=== PATIENT | female | born 1960 | race Caucasian/White ===

== ENCOUNTER 2016-08-14 14:49 | Emergency (ER) | payer BC ==
[~2016-08-14] VITALS: Ht 172.7 cm; Wt 61.2 kg
--- NOTE | 2016-08-14 14:53 | NUR ---
GLF; MECHANICAL FALL; NO KO; C/O RIGHT SHOULDER 12/18. AWAITING MD ORDER.
--- NOTE | 2016-08-14 16:50 | NUR ---
Patient discharged to home in stable condition. Written and verbal after care instructions given. Patient verbalizes understanding of instruction.
[2016-08-14 16:53] VITALS: BP 104/62
== END 2016-08-14 16:54 | disposition home or self-care (01) ==
LOC: ER 14:51
DX: S42.031A Displaced fracture of lateral end of right clavicle, initial encounter for closed fracture (principal); W01.198A Fall on same level from slipping, tripping and stumbling with subsequent striking against other object, initial encounter; Y93.89 Activity, other specified; Y92.89 Other specified places as the place of occurrence of the external cause; Y99.9 Unspecified external cause status
CPT/HCPCS: 73030-TC; A4606; Z7610